=== PATIENT | female | born 1965 | race Two or more races ===

== ENCOUNTER 2018-03-26 08:44 | Outpatient (CLI) | payer OTHER ==
[~2018-03-26 08:44] MED LIST: DIOVAN320 MG; NORVASC5 MG
== END 2018-03-26 08:47 | disposition home or self-care (01) ==
LOC: SONOGRAMA 08:44
DX: E04.1 Nontoxic single thyroid nodule (principal)

== ENCOUNTER → 2021-08-13 | Outpatient (CLI) | payer OTHER | END | disposition home or self-care (01) | LOC: SONOGRAMA 08:34 | PROVIDERS: ATTEND Pathology Anatomic Pathology | DX: E04.2 Nontoxic multinodular goiter (principal) ==